=== PATIENT | female | born 1985 | race Hispanic/Latino ===

== ENCOUNTER 2018-05-13 02:24 | Emergency (ER) | payer SELFPAY ==
[2018-05-13 02:32] VITALS: BMI 23.0
[2018-05-13 02:39] VITALS: BP 153/92; PULSE 110; RESP 18; TEMP 97.5; O2SAT 100
--- NOTE | 2018-05-13 02:42 | ED PDOC ---
HPI: Psych/Substance Abuse Time Seen by Provider: 05/13/18 02:31 Chief Complaint (Nursing): Alcohol Ingestion Chief Complaint (Provider): Alcohol Use History Per: Patient History/Exam Limitations: no limitations Onset/Duration Of Symptoms: Hrs Current Symptoms Are (Timing): Gone Now Suicide/Self Injury Attempted (Context): None, Cut Wrists (Pt presents to the ED with EMS after slipping without injury or LOC or head strike outside of [facility]; pt was going home to rest for tomorrow work day. Pt has a normal gaze, a straight and strong gate, is speaking in complete and intelligible sentences and is requesting discharge. Pt indicates taht she has no need for medical treatment. ) Past Medical History Reviewed: Historical Data, Nursing Documentation, Vital Signs Vital Signs: Last Vital Signs Temp 97.5 F L 05/13/18 02:33 Pulse 110 H 05/13/18 02:33 Resp 18 05/13/18 02:33 BP 153/92 H 05/13/18 02:33 Pulse Ox 100 05/13/18 02:33 - Family History Family History: States: Unknown Family Hx - Allergies Allergies/Adverse Reactions: Allergies Allergy/AdvReac Type Severity Reaction Status Date / Time epinephrine Allergy RASH Verified 05/13/18 02:30 Review of Systems ROS Statement: Except As Marked, All Systems Reviewed And Found Negative (Pt denies all ROS, including lacerations, bruises, or abrasions) Physical Exam - Reviewed Nursing Documentation Reviewed: Yes Vital Signs Reviewed: Yes - Physical Exam Appears: Positive for: Well, Non-toxic, No Acute Distress. Negative for: Uncomfortable Head Exam: Positive for: ATRAUMATIC, NORMAL INSPECTION Skin: Positive for: Normal Color, Warm, Dry. Negative for: Diaphoresis, Pallor, Rash Eye Exam: Positive for: Normal appearance, PERRL. Negative for: Nystagmus, Periorbital swelling, Periorbital tenderness Neck: Positive for: Normal, Painless ROM, Supple. Negative for: Decreased ROM Cardiovascular/Chest: Positive for: Regular Rate, Rhythm Respiratory: Positive for: Normal Breath Sounds Pulses-Carotid (L): 2+ Pulses-Carotid (R): 2+ Pulses-Post. Tibialis (R): 2+ Pulses-Radial (L): 2+ - ECG O2 Sat by Pulse Oximetry: 100 Medical Decision Making Medical Decision Making: I: alcohol use P: sobriety; Pt has a normal gaze, a straight and strong gate, is speaking in complete and intelligible sentences and is requesting discharge. Pt indicates taht she has no need for medical treatment. Pt is stable for discharge and pt is safe for dischrge Disposition - Clinical Impression Clinical Impression: Alcohol use - Patient ED Disposition Is Patient to be Admitted: No Counseled Patient/Family Regarding: Diagnosis - Disposition Disposition: Routine/Home Disposition Time: 02:44 Condition: STABLE
== END 2018-05-13 03:15 | disposition home or self-care (01) ==
LOC: H.ER 02:24
DX: F10.10 Alcohol abuse, uncomplicated (principal)